=== PATIENT | female | born 1965 | race Caucasian/White ===

== ENCOUNTER 2020-02-01 13:03 | Emergency (ER) | payer BC, SELFPAY ==
[2020-02-01 13:23] VITALS: BP 137/87; PULSE 75; RESP 18; TEMP 35.9; O2SAT 99
--- NOTE | 2020-02-01 14:12 | W.ED.GENAD ---
Discharge Plan Disposition Patient Disposition: HOME Condition: Stable Discharge Details Chief Complaint: EyeProblem Clinical Impression: Corneal abrasion Primary Care Provider: Malia,Local ED Provider: Rod Villarreal Home Meds and New Rx's Prescriptions: New ciprofloxacin HCl 0.3 % ointment See Rx Instructions .ROUTE .COMPLEX Qty: 3.5 RF: 0 Discharge Instructions Instructions: Corneal Abrasion (ED) Additional Instructions: Cipro eye ointment as directed. Do not wear your contacts until you are asymptomatic. Try not to touch your eye however if you do be sure to wash with soap and water thoroughly. Jlbr-sne-lyqiqnl medications such as Tylenol as directed for discomfort. You may also use efnd-[id number]-[id number] lubricating drops for symptomatic control, do not use within an hour of using the antibiotic ointment. Cool and/or warm compresses every 2 hours for 20 minutes. Please watch for new or worsening symptoms and return to the ER for any concerns. I do recommend reaching out to your primary care provider on Monday for prompt outpatient reevaluation, if symptoms persist referral to denial resolution specialist may be indicated. Medical Decision Making 54-year-old female presents with left eye irritation and drainage that began yesterday. Evaluation with fluorescein staining does reveal a small corneal abrasion at the 3 o'clock position. Diagnosis such as retained foreign body, retinal detachment, acute closed angle glaucoma, iritis, considered however presentation is not consistent with these diagnoses. She does wear contacts occasionally, will treat her with Cipro eye ointment. Patient has no plans to wear her contacts anytime soon. Visual acuities were 20-40 bilaterally. The dye uptake was not in a dendritic fashion I did use tetracaine during my evaluation, she reports that her symptoms were nearly completely resolved after the tetracaine was applied. The left eye was flushed using approximately 200 cc sterile water. Patient tolerated well. She has no additional questions or concerns and is comfortable discharge. HPI General Mode of arrival: ambulatory. Date/Time Provider Initiated Documentation: 02/01/20 13:25. Limitations to Documentation: no limitations. Information obtained by: patient. HPI Narrative: This is a 54-year-old female who reports that last night [place] she felt as though her left eye was irritated although did not notice any obvious direct trauma. She woke up this morning and her eye was crusted shut, there has been a green discharge from her left eye throughout the day today. She reports that she wears contacts roughly 5 times a year when skiing but typically wears glasses. She denies any visual changes. She reports that the symptoms are more of an irritation than true pain and worse with blinking of her eye. She has no other symptoms such as headache, ear pain, sore throat, recent trauma. She reports that she did travel to [facility] in late November early December and had respiratory symptoms then, she is assuming that she had COVID but was never tested. She denies any fever, shortness of breath, cough currently. Related Data Home Medications Medication Instructions Recorded Confirmed ciprofloxacin HCl See Rx Instructions .ROUTE 02/01/20 .COMPLEX #3.5 gm Previous Rx's Medication Instructions Recorded ciprofloxacin HCl See Rx Instructions .ROUTE 02/01/20 .COMPLEX #3.5 gm Allergies Allergy/AdvReac Type Severity Reaction Status Date / Time clarithromycin [From Biaxin] Allergy Unverified 02/01/20 13:30 Tetracyclines Allergy Unverified 02/01/20 13:30 NSAIDS (Non-Steroidal AdvReac Unverified 02/01/20 13:30 Anti-Inflamma General Stated Complaint: EyeProblem CEM: 3 Review of Systems Constitutional Constitutional: Denies fever(s) and Denies headache(s) Eyes Eyes: Denies blurry vision, Denies change in vision, Denies diplopia, Reports eye discharge, Reports irritation, Denies loss of vision, Reports requires corrective lenses, Denies seeing flashes and Denies photophobia ENT Ears, Nose, Mouth, and Throat: Denies otalgia, Denies headache(s) and Denies sore throat Cardiovascular Cardiovascular: Denies chest pain and Denies dyspnea Respiratory Respiratory: Denies cough and Denies dyspnea Integumentary/Breasts Skin/Breast: Denies rash Neurologic Neurologic: Denies headache(s) and Denies loss of vision COUNTS INCLUDE 234 BEDS AT THE [facility] Social History Smoking/Tobacco Use Status: Never Drug use: Never Do you feel safe at home: Yes Do you feel safe in your relationship?: Yes Exam Const General: cooperative, healthy appearing, comfortable and no acute distress Orientation: alert and awake [facility] Head: normal to inspection, normocephalic and atraumatic Ears: external ears normal, TM's normal bilaterally and EAC's normal General nose exam: external nose normal Face and sinus: normal facial exam Mouth: oral mucosae normal and moist mucous membranes Throat: posterior oropharynx normal Eyes Alignment and Position: alignment normal Periorbital: periorbital findings normal Eyelids: eyelids normal and other (I did flip the left eyelid for evaluation) Conjunctivae: conjunctivae normal Sclera: scleral abnormality left scleral exudate purulent and scleral injection lateral Cornea: corneas abnormal on the left fluorescein used and abrasion linear (3 o'clock position) and fluorescein used Pupils: PERRL EOM: EOM intact bilaterally Direct ophthalmoscopy: normal light reflex Neck Neck: normal visual inspection, full ROM, trachea midline and supple Resp Effort & Inspection: normal respiratory effort and able to speak in complete sentences Cardio Rate: regular rate Rhythm: regular rhythm Skin General skin exam: no rashes or lesions noted Neuro General: patient alert, patient awake, moves all extremities and no focal motor deficits Cranial Nerves: CN's II-XI intact bilaterally Speech: speech normal Sensory Exam: no sensory deficits noted Psych Appearance: grossly normal Mental Status: mental status grossly normal Course Vital Signs Vital signs: Vital Signs Temperature 35.9 C L 02/01/20 13:23 Pulse 75 02/01/20 13:23 Respiratory Rate 18 02/01/20 13:23 Blood Pressure 137/87 02/01/20 13:23 Pulse Oximetry 99 02/01/20 13:23 Temperature 35.9 C L 02/01/20 13:23 Temperature Source Temporal Artery Scan 02/01/20 13:23 Pulse 75 02/01/20 13:23 Respiratory Rate 18 02/01/20 13:23 Respiratory Effort 02/01/20 13:31 Blood Pressure 137/87 02/01/20 13:23 Pulse Oximetry 99 02/01/20 13:23 Oxygen Delivery Method Room Air 02/01/20 13:23 Oxygen Flow Rate 0 02/01/20 13:23
== END 2020-02-01 14:51 | disposition home or self-care (01) ==
PROVIDERS: Emergency Provider Physician Assistant
DX: S05.02XA Injury of conjunctiva and corneal abrasion without foreign body, left eye, initial encounter (principal); X58.XXXA Exposure to other specified factors, initial encounter
CPT/HCPCS: 99283

== ENCOUNTER 2020-02-03 09:59 | Outpatient (CLI) | payer BC, SELFPAY ==
[2020-02-04 17:42] LABS: COVID-19 RT-PCR Result NEGATIVE (Negative)
--- NOTE | 2020-02-07 09:41 | NUR.NOTE ---
patient aware of negative COVID-19 results. patient reports her eye is clearing up. Nursing Note:
== END 2020-02-03 10:19 ==
PROVIDERS: Visit Provider Physician Assistant
DX: Z11.59 Encounter for screening for other viral diseases (principal)
CPT/HCPCS: U0003